=== PATIENT | male | born 1955 | race Caucasian/White ===

== ENCOUNTER 2017-11-15 13:47 | Outpatient (CLI) | payer BC ==
--- NOTE | 2017-11-15 15:46 | XRAY Report ---
LEFT WRIST: 11/15/2017 COMPARISON: None. INDICATION: Pain in the left wrist. TECHNIQUE: Four views. FINDINGS: Normal alignment. No evidence of acute fracture. No degenerative changes. IMPRESSION: NEGATIVE WRIST. TD: 11/15/2017 15:45 MTDD
== END 2017-11-15 13:48 | disposition home or self-care (01) ==
LOC: DI.N 13:47
PROVIDERS: ATTEND Family Medicine
DX: M25.532 Pain in left wrist (principal)